=== PATIENT | female | born 1950 | race Caucasian/White ===

== ENCOUNTER → 2018-07-03 | Outpatient (CLI) | payer MEDICARE, BC ==
[~2018-07-03] MED LIST: B POLLEN; CALC500T42 PO; IBU800 PO; LEVO150T72 PO; LOR7.5/325 PO
--- NOTE | 2018-07-03 16:00 | RADIOLOGY IMAGING REPORT ---
FACILITY: [facility] [place] PATIENT NAME: SHANICE GUTIÉRREZ : [id number] MR: [id number] V: [id number] EXAM DATE: [id number] ORDERING PHYSICIAN: STU WASHINGTON TECHNOLOGIST: Sheila Gill PROCEDURE:BILATERAL DIGITAL SCREENING MAMMOGRAM WITH CAD ASSISTED INTERPRETATION & 3D TOMOSYNTHESIS COMPARISON:Prior mammograms 02/14/17, 09/01/15, 02/02/14, 04/09/12. INDICATIONS:SCREENING FINDINGS: The breasts are heterogeneously dense which can obscure small masses. There are multiple round masses seen throughout the breasts which when previously demonstrated to represent cysts. The remainder of the parenchymal pattern has remained stable. DIAGNOSTIC CATEGORY 2--BENIGN FINDING. RECOMMENDATIONS: ROUTINE MAMMOGRAM AND CLINICAL EVALUATION. IMPRESSION: BIRADS 2: Benign finding. No significant abnormality is seen. Dictated by: Ayana Finn M.D. on 07/03/2018 at 15:25 Transcribed by: WILLIAM on 07/03/2018 at 15:32 Approved by: Ayana Finn M.D. on 07/03/2018 at 15:59 [facility]
== END ==
LOC: MAMO 05-29 02:02
PROVIDERS: ATTEND Family Medicine
DX: Z12.31 Encounter for screening mammogram for malignant neoplasm of breast (principal)
CPT/HCPCS: 77063; 77067